=== PATIENT | female | born 1980 | race Caucasian/White ===

== ENCOUNTER 2018-09-29 16:22 | Inpatient (IN) | payer OTHER ==
[~2018-09-29] VITALS: Ht 165.1 cm; Wt 65.3 kg
--- NOTE | ~2018-09-29 | EKG ---
[place], [place] ELECTROCARDIOGRAM REPORT NAME: WANDA BERNSTEIN UNIT #: [id number] ROOM: 507 DOCTOR: CHRISTO DRAFT REPORT BIRTHDATE: [address] [facility] Test Date: 2018-09-29 Test Time: 19:16:45 Pat Name: WANDA BERNSTEIN Department: Room: [facility] 1 Gender: F Director Advanced: Danielle Larkin : 1980 Requested By: NAYELI YARBROUGH Order Number: [id number] Reading MD: Yo Valdez MD Measurements Intervals [place] Rate: 61 P: 39 [place]: 152 QRS: 30 QRSD: 85 T: 15 QT: 445 QTc: 449 Interpretive Statements Sinus arrhythmia Left ventricular hypertrophy by voltage criteria Electronically Signed On 09-30-2018 13:50:53 PDT by Yo Valdez MD CM:EKGRPT:ELECTROCARDIOGRAM REPORT [id number] NAYELI ADAIR DRAFT REPORT NAYELI YARBROUGH DO
--- NOTE | ~2018-09-29 | EKG ---
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
[2018-09-29 17:30] VITALS: BP 146/90
[2018-09-29] MEDS ORDERED: LISINOPRIL-HCT1 EACH PO (18:20)
[2018-09-29 18:22] LABS: BASO % 0.4 % (0.0-1.0); EOS # 0.1 10*3/uL (0.0-0.4); HEMATOCRIT 39.5 % (37.0-47.0); HEMOGLOBIN 13.1 g/dl (12.0-16.0); LYMPH # 1.4 10*3/uL (1.3-4.4); LYMPH % 16.8 % (27.0-41.0); MEAN CELL VOLUME 96.1 fl (81.0-99.0); MEAN CORPUSCULAR HGB 31.9 pg (27.0-31.0); MEAN CORPUSCULAR HGB CONC 33.2 g/dl (33.0-37.0); MEAN PLATELET VOLUME 9.2 fl (9.6-12.3); MONO # 0.7 10*3/uL (0.1-1.0); MONO % 7.9 % (3.0-9.0); NEUT # 6.2 10*3/uL (2.3-7.9); NEUT % 73.7 % (47.0-73.0); PLATELET COUNT AUTOMATED 286 10*3/uL (130-400); RED BLOOD COUNT 4.11 10*6/uL (4.10-5.10); RED CELL DISTRI WIDTH 12.3 % (0-14.5); WHITE BLOOD COUNT 8.4 10*3/uL (4.8-10.8)
[2018-09-29 18:35] LABS: ALBUMIN 3.7 gm/dl (3.1-4.5); ALKALINE PHOSPHATASE 76 U/L (45-117); BUN 12 mg/dl (7-24); CHLORIDE 103 mmol/L (98-107); CREATININE 0.85 mg/dL (0.55-1.02); LIPASE 393 U/L (73-393); POTASSIUM 3.5 mmol/L (3.5-5.1); SGOT/AST 12 IU/L (3-35); SGPT/ALT 21 U/L (12-78); SODIUM 138 mmol/L (136-145); TOTAL PROTEIN 7.2 gm/dL (6.4-8.2)
[2018-09-29 18:37] LABS: BETA-HCG, QUANT < 1.0 mIU/mL (1-3); ETHYL ALCOHOL < 3.0 mg/dl (<3); TROPONIN I < 0.015 ng/ml (<0.045)
[2018-09-29 19:00] LABS: BILIRUBIN NEGATIVE (NEGATIVE); BLOOD NEGATIVE (NEGATIVE); CLARITY SL CLOUDY (CLEAR); COLOR YELLOW (YELLOW); GLUCOSE NEGATIVE (NEGATIVE); KETONE TRACE (NEGATIVE); LEUKO ESTERASE NEGATIVE (NEGATIVE); NITRITE POSITIVE (NEGATIVE); SPECIFIC GRAVITY 1.025 (1.005-1.030); UROBILINOGEN 0.2 E.U./dl (0.2-1.0)
[2018-09-29 19:09] LABS: BACTERIA 3+; URINE AMPHETAMINES < 1000 (1000ng/ml); URINE BARBITURATES < 200 (200ng/ml); URINE BENZODIAZEPINES < 200 (200ng/ml); URINE CANNABINOIDS (THC) < 50 (50ng/ml); URINE COCAINE < 300 (300ng/ml); URINE METHADONE < 300 (300ng/ml); URINE OPIATES > 300 (300ng/ml)
[2018-09-29 19:10] LABS: URINE PHENCYCLIDINE < 25 (25ng/ml)
[2018-09-29 20:00] VITALS: BP 159/107
[2018-09-30] VITALS: BP 122/81
[2018-09-30 12:00] VITALS: BP 105/63
[2018-09-30 16:00] VITALS: BP 108/62
[2018-09-30 20:00] VITALS: BP 119/74
[2018-10-01] VITALS: BP 120/78
[2018-10-01 12:00] VITALS: BP 94/75
[2018-10-01 16:00] VITALS: BP 110/66
[2018-10-01 20:00] VITALS: BP 129/80
[2018-10-02] VITALS: BP 111/66
[2018-10-02 06:43] LABS: BASO % 0.7 % (0.0-1.0); EOS # 0.2 10*3/uL (0.0-0.4); HEMATOCRIT 39.4 % (37.0-47.0); HEMOGLOBIN 12.6 g/dl (12.0-16.0); LYMPH # 1.9 10*3/uL (1.3-4.4); LYMPH % 32.1 % (27.0-41.0); MEAN CELL VOLUME 99.5 fl (81.0-99.0); MEAN CORPUSCULAR HGB 31.8 pg (27.0-31.0); MEAN PLATELET VOLUME 9.2 fl (9.6-12.3); MONO # 0.6 10*3/uL (0.1-1.0); MONO % 9.7 % (3.0-9.0); NEUT # 3.2 10*3/uL (2.3-7.9); NEUT % 54.2 % (47.0-73.0); PLATELET COUNT AUTOMATED 260 10*3/uL (130-400); RED BLOOD COUNT 3.96 10*6/uL (4.10-5.10); RED CELL DISTRI WIDTH 12.1 % (0-14.5)
[2018-10-02 07:02] LABS: CREATININE 1.05 mg/dL (0.55-1.02)
[2018-10-02 07:55] VITALS: BP 118/80
[2018-10-02 08:00] VITALS: BP 105/63
[2018-10-02 12:00] VITALS: BP 125/73
[2018-10-02 16:00] VITALS: BP 124/83
[2018-10-02 20:00] VITALS: BP 114/64
[2018-10-03] VITALS: BP 113/65
[2018-10-03 08:00] VITALS: BP 129/74
[2018-10-03 12:00] VITALS: BP 122/83
[2018-10-03 16:00] VITALS: BP 102/58
[2018-10-03 20:00] VITALS: BP 124/74
[2018-10-04] VITALS: BP 135/76
[2018-10-04] MEDS ORDERED: HYDR25T PO (07:42)
[2018-10-04] MEDS ORDERED: ATARAX,VISTARIL50 MG PO (07:42)
[2018-10-04] MEDS ORDERED: DICYCLOMINE HCL20 MG PO (07:42)
[2018-10-04] MEDS ORDERED: Zofran4 MG SL (07:43)
[2018-10-04 08:00] VITALS: BP 135/90
[2018-10-04 09:06] VITALS: BP 124/82
== END 2018-10-04 11:00 | disposition home or self-care (01) | DRG 897 ==
LOC: 5E 16:22 → EDHOLD 16:22 → 4E 16:22 → 5E 17:04
PROVIDERS: Internal Medicine
DX: F11.23 Opioid dependence with withdrawal (principal); I24.9 Acute ischemic heart disease, unspecified; I10 Essential (primary) hypertension; R82.71 Bacteriuria; M94.0 Chondrocostal junction syndrome [Tietze]; K21.9 Gastro-esophageal reflux disease without esophagitis; F41.9 Anxiety disorder, unspecified; F10.239 Alcohol dependence with withdrawal, unspecified; Y90.9 Presence of alcohol in blood, level not specified; Z82.3 Family history of stroke; Z82.49 Family history of ischemic heart disease and other diseases of the circulatory system; Z79.899 Other long term (current) drug therapy